=== PATIENT | male | born 1985 | race Two or more races ===

== ENCOUNTER 2016-10-23 10:02 | Emergency (ER) | payer BC, OTHER ==
[~2016-10-23] VITALS: Ht 172.7 cm; Wt 95.3 kg
--- NOTE | 2016-10-23 10:08 | NUR ---
seen by Dr. Balbuena with orders for labs and DT shot
--- NOTE | 2016-10-23 10:09 | NUR ---
No acute distress
[2016-10-23] MEDS ORDERED: TDAP [DIPH/PERTUSSIS/TET] 0.5 ML VIAL IM ONE (10:11)
[2016-10-23] MEDS: TDAP [DIPH/PERTUSSIS/TET] 0.5 ML VIAL IM ONE (10:20)
[2016-10-23 10:26] VITALS: BP 140/92
--- NOTE | 2016-10-23 10:27 | NUR ---
Patient discharged to home in stable condition. Written and verbal after care instructions given. Patient verbalizes understanding of instruction.
== END 2016-10-23 10:32 | disposition home or self-care (01) ==
LOC: ER 10:05
DX: S61.231A Puncture wound without foreign body of left index finger without damage to nail, initial encounter (principal); W46.1XXA Contact with contaminated hypodermic needle, initial encounter; Y92.89 Other specified places as the place of occurrence of the external cause; Y93.89 Activity, other specified; Y99.8 Other external cause status
CPT/HCPCS: 36415; 80074; 86706; 86803; 90715; A4606; Z7610

== ENCOUNTER 2019-08-15 07:59 | Emergency (ER) | payer OTHER ==
[~2019-08-15] VITALS: Ht 170.2 cm; Wt 86.2 kg
[2019-08-15 08:07] VITALS: BP 134/85
--- NOTE | 2019-08-15 22:19 | NUR ---
RECEIVED A CALL FROM LAB REPORTING NEGATIVE RESULT FOR COVID TEST
== END 2019-08-15 08:20 | disposition home or self-care (01) ==
LOC: ER 08:01
DX: Z03.818 Encounter for observation for suspected exposure to other biological agents ruled out (principal)
CPT/HCPCS: 99283; U0003

== ENCOUNTER 2023-09-09 20:43 | Emergency (ER) | payer BC, OTHER ==
[~2023-09-09] VITALS: Ht 175.3 cm; Wt 74.8 kg
[~2023-09-09 20:43] MED LIST: HYDR-3972 PO; TEMA30CA PO; TEMA30CA5 PO
[2023-09-09] MEDS: ONDANSETRON HCL/PF 4 MG/2 ML VIAL IVP ONE (21:30)
[2023-09-09] MEDS: IV NS 0.9% 1,000 ML BAG IV ONE (21:30)
[2023-09-09] MEDS ORDERED: ONDANSETRON HCL/PF 4 MG/2 ML VIAL ONE (21:33)
[2023-09-09 22:24] LABS: BASOPHILS % (AUTO) 0.1 % (0.0-2.0); HEMATOCRIT 47 % (39-51); HEMOGLOBIN 15.9 g/dL (13.5-17.5); LYMPHOCYTES # (AUTO) 0.8 K/uL (0.8-4.8); LYMPHOCYTES % (AUTO) 5.3 % (20.0-44.0); MEAN CORPUSCULAR HEMOGLOBIN 31 PG (26.0-33.0); MEAN CORPUSCULAR HGB CONC 34 g/dl (31.0-36.0); MEAN CORPUSCULAR VOLUME 89 fL (80-96); MONOCYTES # (AUTO) 0.8 K/uL (0.1-1.30); MONOCYTES % (AUTO) 5.7 % (2.0-12.0); NEUTROPHILS # (AUTO) 12.8 K/uL (1.8-8.9); NEUTROPHILS % (AUTO) 88.9 % (43.0-81.0); PLATELET COUNT (AUTO) 173 K/uL (150-450); RED BLOOD CELL COUNT(AUTO) 5.22 MIL/uL (4.5-6.0); RED CELL DISTRIBUTION WIDTH 15.4 % (11.5-15.0); WHITE BLOOD COUNT (AUTO) 14.4 K/uL (4.3-11.0)
[2023-09-09 22:33] LABS: CALCIUM, SERUM 8.7 mg/dL (8.5-10.1); POTASSIUM 3.5 mmol/L (3.5-5.1)
[2023-09-09 22:39] VITALS: BP 155/108; TEMP 99.9; O2SAT 98
== END 2023-09-09 22:39 | disposition home or self-care (01) ==
LOC: ER 20:46
DX: Z00.00 Encounter for general adult medical examination without abnormal findings (principal); F10.239 Alcohol dependence with withdrawal, unspecified; Z79.891 Long term (current) use of opiate analgesic; Z79.899 Other long term (current) drug therapy
CPT/HCPCS: 99284; 96374; 96361; 93005; 85025; 80048; 36415; J2405; J7030